=== PATIENT | male | born 1985 | race Caucasian/White ===

== ENCOUNTER 2024-11-07 16:31 | Outpatient (CLI) | payer MEDICARE, MEDICAID, SELFPAY | END 2024-11-07 16:32 | disposition home or self-care (01) | PROVIDERS: PCP Physician Assistant Medical; Visit Provider Physician Assistant Medical | DX: Z00.00 Encounter for general adult medical examination without abnormal findings (principal); I10 Essential (primary) hypertension; R20.0 Anesthesia of skin; R20.2 Paresthesia of skin; E78.1 Pure hyperglyceridemia; Z11.4 Encounter for screening for human immunodeficiency virus [HIV]; Z11.59 Encounter for screening for other viral diseases | CPT/HCPCS: 80053; 80061; 82607; 84443; 86703; 86803 ==

== ENCOUNTER 2025-01-16 10:39 | Outpatient (CLI) | payer MEDICARE, MEDICAID, SELFPAY | END 2025-01-16 10:40 | disposition home or self-care (01) | PROVIDERS: PCP Physician Assistant Medical; Visit Provider Physician Assistant Medical | DX: E11.9 Type 2 diabetes mellitus without complications (principal); R10.32 Left lower quadrant pain | CPT/HCPCS: 80053; 80061; 82043; 82570; 82607; 83690 ==